=== PATIENT | male | born 1975 | race Caucasian/White ===

== ENCOUNTER 2020-01-01 14:35 | Outpatient (CLI) | payer BC ==
[2020-01-01] MEDS ORDERED: Magnevist 469MG/ML 20 ML VIAL ONE (15:04)
--- NOTE | 2020-01-01 16:22 | MRI ---
MRI ABDOMEN WITH AND WITHOUT IV CONTRAST: Date: 01/01/2020 HISTORY: Liver transplant. COMPARISON: 10/30/2005. FINDINGS: The spleen is normal in size, measuring 11.2 cm in length. Paraesophageal varices are again seen. The liver, pancreas, and adrenal glands are normal. There are cysts in the kidneys bilaterally. The larg est cyst is in the inferior pole of the left kidney measuring 4.5 cm. No abnormal postcontrast enhanc ement is seen. No free fluid or lymphadenopathy is noted in the abdomen. No aneurysmal dilatation of the abdominal a bruce is seen. The bone marrow signal is normal. There are diverticula in the colon. IMPRESSION: 1. Paraesophageal varices. 2. Renal cysts. 3. Colonic diverticulosis. POS: [facility]
== END 2020-01-01 14:36 | disposition home or self-care (01) ==
LOC: BICMRI 14:35
PROVIDERS: ATTEND Physician Assistant Medical
DX: D84.9 Immunodeficiency, unspecified (principal); M89.8X8 Other specified disorders of bone, other site; R94.4 Abnormal results of kidney function studies; I85.00 Esophageal varices without bleeding; N28.1 Cyst of kidney, acquired; K57.30 Diverticulosis of large intestine without perforation or abscess without bleeding; Z94.4 Liver transplant status
CPT/HCPCS: 74183; 82565; A9579